=== PATIENT | male | born 1980 | race Caucasian/White ===

== ENCOUNTER 2019-02-05 12:43 | Emergency (ER) | payer OTHER ==
[~2019-02-05] VITALS: Ht 198.1 cm; Wt 159.7 kg
--- NOTE | 2019-02-05 12:49 | NUR ---
DR MULLER AT BEDSIDE FOR EVAL.
--- NOTE | 2019-02-05 12:58 | NUR ---
PT TO RADIOLOGY FOR CT SCAN W/ CONTRAST VIA GURNEY.
[2019-02-05] MEDS ORDERED: IV NS 0.9% 1,000 ML BAG IV ONE (13:00)
[2019-02-05] MEDS ORDERED: IV NS 0.9% 250 ML IV ONE (13:02)
[2019-02-05] MEDS ORDERED: IOHEXOL-300 100 ML VIAL IV ONE (13:02)
[2019-02-05 13:03] LABS: BASOPHILS % (AUTO) 0.4 % (0.0-2.0); EOSINOPHILS % (AUTO) 1.5 % (0.0-6.0); HEMATOCRIT 40 % (39-51); HEMOGLOBIN 13.6 g/dL (13.5-17.5); LYMPHOCYTES # (AUTO) 0.9 /CMM (0.8-4.8); LYMPHOCYTES % (AUTO) 19.8 % (20.0-44.0); MEAN CORPUSCULAR HGB CONC 34 g/dl (31.0-36.0); MEAN CORPUSCULAR VOLUME 93 fL (80-96); MONOCYTES # (AUTO) 0.4 /CMM (0.1-1.30); MONOCYTES % (AUTO) 7.9 % (2.0-12.0); NEUTROPHILS # (AUTO) 3.2 /CMM (1.8-8.9); NEUTROPHILS % (AUTO) 70.4 % (43.0-81.0); PLATELET COUNT (AUTO) 212 /CMM (150-450); RED BLOOD CELL COUNT(AUTO) 4.34 MIL/uL (4.5-6.0); WHITE BLOOD COUNT (AUTO) 4.6 K/uL (4.3-11.0)
[2019-02-05 13:11] LABS: ALCOHOL, BLOOD < 3 mg/dL (0-0); CALCIUM, SERUM 8.5 mg/dL (8.5-10.1); CARBON DIOXIDE 29 mmol/L (21-32); CHLORIDE 105 mmol/L (98-107); CREATININE 1.2 mg/dL (0.6-1.3); GLUCOSE 106 mg/dL (74-106); POTASSIUM 3.7 mmol/L (3.5-5.1); SODIUM SERUM 141 mmol/L (136-145); UREA NITROGEN, BLOOD 17 mg/dL (7-18)
--- NOTE | 2019-02-05 14:19 | NUR ---
MEDICALLY CLEARED FOR BOOKING. D/C TO PD IN STABLE CONDITION. IV removed. Catheter intact and site benign. Pressure and 4x4 applied to site. No bleeding noted.
[2019-02-05 14:20] VITALS: BP 142/89
== END 2019-02-05 14:21 | disposition home or self-care (01) ==
LOC: ER 12:45
DX: S20.219A Contusion of unspecified front wall of thorax, initial encounter (principal); S80.02XA Contusion of left knee, initial encounter; I10 Essential (primary) hypertension; F17.200 Nicotine dependence, unspecified, uncomplicated; Z86.718 Personal history of other venous thrombosis and embolism; V47.5XXA Car driver injured in collision with fixed or stationary object in traffic accident, initial encounter; Y93.89 Activity, other specified; Y92.413 State road as the place of occurrence of the external cause; Y99.8 Other external cause status
CPT/HCPCS: 36415; 70450; 71260; 72125; 73564; 74177; 80048; 80307; 85025; 85730; 93005; 99284; J7030 ×2; J7050; Q9967; G0480